=== PATIENT | female | born 1985 | race American Indian/Alaskan Native ===

== ENCOUNTER 2019-06-09 11:29 | Inpatient (IN) | payer BC ==
[2019-06-09 12:10] LABS: Bacteria,Urine 4+ /HPF (Negative); Bilirubin,Urine NEG (Negative); Blood,Urine NEG (Negative); Color,Urine Yellow (Yellow); Protein,Urine <15 mg/dL mg/dL (Negative); Urobilinogen,Urine < 2.0 mg/dL (<2.0)
[2019-06-09 12:51] LABS: Hematocrit 37.5 % (30.3-42.9); Hemoglobin 12.6 gm/dl (10.1-14.3); Mean Corpuscular HGB Conc 34 % (30-34); Mean Corpuscular Volume 96 fl (79-97); Platelet Count 202 K/mm3 (140-440); Red Blood Count 3.92 M/mm3 (3.65-5.03); Red Cell Distribution Width 16.7 % (13.2-15.2)
--- NOTE | 2019-06-09 12:55 | History and Physical Report ---
History of Present Illness Date of examination: 06/09/19 Date of admission: 06/09/2019 Chief complaint: sent from office for elevated BP History of present illness: Menstrual History Regularity: regular Menses every: 28 days Duration: 5 LMP: 09/09/2018 LMP reliability: definite LMP character: normal test type: urine test Date: 12/16/2018 BC at conception: none Planned ? yes EDC Calculations LMP: 06/16/2019 EDC Confirmation: 06/16/2019 Gestational Age: 14 weeks Past History : 3 Term Births: 2 Premature Births: 0 Living Children: 2 Para: 2 Mult. Births: 0 Prev : 0 Aborta: 0 Elect. Ab: 0 Spont. 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 of genital herpes: yes Partner hx. of genital herpes: no Rash, Viral, or Febrile illness since last LMP? no Varicella/Chicken Pox Status: Previous Disease Genetic History Congenital Heart Defect: Mom: no Dad: no Ladi Disease: Mom: no Dad: no Thalassemia Mom: no Dad: no Neural Tube Defect Mom: no Dad: no Down's Syndrome Mom: no Dad: no Maurice-Sachs Mom: no Dad: no Sickle Cell Disease/Trait Mom: no Dad: no Hemophilia Mom: no Dad: no Muscular Dystrophy Mom: no Dad: no Cystic Fibrosis Mom: no Dad: no Vivian Chorea Mom: no Dad: no Mental Retardation Mom: no Dad: no Fragile X Mom: no Dad: no Other Genetic/Chromosomal Disorder Mom: no Dad: no Child w/other defect Mom: no Dad: no Enviromental Exposures Xray Exposure: no Medication, drug, or alcohol use since LMP: no Chemical/Other Exposure: no Exposure to Cat Liter: no Hx of Parvovirus (Fifth Disease): no Occupational Exposure to Children: none Active Medications (reviewed today): SULFAMETHOXAZOLE-TRIMETHOPRIM 800-160 MG ORAL TABLET (SULFAMETHOXAZOLE- TRIMETHOPRIM) IBUPROFEN 800 MG ORAL TABLET (IBUPROFEN) Current Allergies (reviewed today): No known allergies Past History Past Medical History: other (see H&P) Past Surgical History: other (see H&P) [employer]PER[employer] History: other (see H&P) Family/Genetic History: other (see H&P) Social history: other (see H&P) - Obstetrical History Expected Date of Delivery: 06/16/19 Actual Gestation: 39 Week(s) 1 Day(s) : 3 Para: 2 Hx # Term Pregnancies: 2 Number of Living Children: 2 Medications and Allergies Allergies Allergy/AdvReac Type Severity Reaction Status Date / Time No Known Allergies Allergy Verified 06/09/19 11:32 Home Medications Medication Instructions Recorded Confirmed Last Taken Type Vit-Fe Fumar-FA [ 1 tab PO QDAY 06/09/19 06/09/19 Unknown History Vitamin] Review of Systems All systems: negative - Vital Signs Vital signs: Vital Signs Pulse Pulse Ox 61 100 06/09/19 12:05 06/09/19 12:05 Temp Pulse Resp BP Pulse Ox 75 146/84 99 06/09/19 12:40 06/09/19 12:36 06/09/19 12:40 - Physical Exam Breasts: Cardiovascular: Regular rate, Normal S1, Normal S2 Lungs: Positive: Clear to auscultation, Normal air movement Abdomen: Positive: normal appearance, soft, normal bowel sounds. Negative: distention, tenderness Genitourinary (Female): Positive: normal external genitalia, normal perenium Vulva: both: normal Vagina: Positive: normal moisture. Negative: discharge Cervix: Negative: lesion, discharge Uterus: Positive: normal size, normal contour Adnexa: both: normal Anus/Rectum: Positive: normal perianal skin, heme negative. Negative: rectal mass, hemorrhoids Extremities: Positive: normal Deep Tendon Reflex Grade: Normal +2 - Obstetrical FHR: auscultation normal Cervical Dilatation: 1.5 Cervical Effacement Percentage: 50 station: -3 Uterine Contraction Pattern: Irregular Uterine Contraction Intensity: Mild Results Result Diagrams: 06/09/19 11:58 06/09/19 11:58 Abnormal lab results 06/09/19 Range/Units 11:58 RDW 16.7 H (13.2-15.2) % All other labs normal. Assessment and Plan Patient sent from office for elevated BPs for PIH labs and serial BPs. Elevated BPs continued in triage, consults with Dr. Tenorio- tha to begin induction. Routine admission orders placed in EMR, will plan to place cervidil after patient eats lunch. UA results reviewed, blood work still pending. Will continue to monitor BPs. DWP POC, questions encouraged and answered. Pt agrees to proceed. RN aware.
[2019-06-09 13:05] LABS: Alanine Aminotransferase 15 units/L (7-56); Uric Acid 3.4 mg/dL (3.5-7.6)
[2019-06-09] MEDS ORDERED: AMPICILLIN/NS 2 GM/100 ML 2 GM/100 ML BAG IV ONE (13:32)
[2019-06-09] MEDS ORDERED: MINERAL OIL PO PRN (13:32)
[2019-06-09] MEDS ORDERED: XYLOCAINE 2% INFILTRATI ONE (13:32)
[2019-06-09] MEDS ORDERED: ZOFRAN IV PRN (13:32)
[2019-06-09] MEDS ORDERED: BRETHINE IVP PRN (13:32)
[2019-06-09] MEDS ORDERED: CERVIDIL VG ONE (13:32)
[2019-06-09] MEDS ORDERED: PITOCin/NS 20 UNIT/1000ML DRIP 20 UNITS/1,000 ML BAG IV SCH (14:00)
[2019-06-09] MEDS ORDERED: MAGNESIUM SULFATE 4GM/100ML 4 GM/100 ML BAG IV ONE (14:35)
--- NOTE | 2019-06-09 14:37 | Event Note ---
Date: 06/09/19 Pt blood pressures remain elevated with some in the severe range. Will start magnesium at this time and con't to monitor. Pt to get cervidil when admisssion completed.
[2019-06-09] MEDS ORDERED: MAGNESIUM SULFATE 40GM/1000ML 40 GM/1,000 ML BAG IV SCH (15:00)
[2019-06-09] MEDS: LACTATED RINGERS 1,000 ML IV SCH (16:23)
[2019-06-09] MEDS: AMPICILLIN/NS 1 GM/50 ML 1 GM/50 ML BAG IV SCH (19:30)
[2019-06-10] MEDS ORDERED: APRESOLINE IV ONE (04:06)
--- NOTE | 2019-06-10 04:23 | Event Note ---
Date: 06/10/19 Cervidil removed as scheduled. SVE 360/-3, vertex, IBOW. Cat 1 tracing, ctx irregular, mild. One time dose of IV hydralazine ordered for elevated BP. Pt denies any SERNA, visual disturbances, RUQ or epigastric pain, LOF,, VB, SOB, chest pain, difficulty breathing, or any other complaints. Will plan to start pitocin at 0500. RN aware. Will continue to monitor BPs
[2019-06-10] MEDS ORDERED: PITOCin/NS 30 UNIT/500ML 30 UNITS/500 ML BAG IV SCH (05:00)
[2019-06-10] MEDS: AMPICILLIN/NS 1 GM/50 ML 1 GM/50 ML BAG IV SCH (05:00)
[2019-06-10] MEDS: LACTATED RINGERS 1,000 ML IV SCH (05:54)
--- NOTE | 2019-06-10 05:57 | Event Note ---
Date: 06/10/19 (called to room to assess poss ROM) Copious amt of clear fluid noted on exam
--- NOTE | 2019-06-10 07:04 | Anesthesia Consultation ---
Anesthesia Consult and Med Hx Date of service: 06/10/19 - Airway Anesthetic Teeth Evaluation: Good ROM Head & Neck: Adequate Mental/Hyoid Distance: Adequate Mallampati Class: Class II Intubation Access Assessment: Probably Good - Pulmonary Exam CTA: Yes - Cardiac Exam Cardiac Exam: RRR - Pre-Operative Health Status ASA Pre-Surgery Classification: ASA3 Proposed Anesthetic Plan: Epidural - Pulmonary Hx Smoking: No Hx Asthma: No Hx Respiratory Symptoms: No SOB: No COPD: No Home Oxygen Therapy: No Hx Pneumonia: No Hx Sleep Apnea: No - Cardiovascular System Hx Hypertension: Yes (PIH) Hx Coronary Artery Disease: No Hx Heart Attack/AMI: No Hx Angina: No Hx Percutaneous Transluminal Coronary Angioplasty (PTCA): No Hx Cardia Arrhythmia: No Hx Pacemaker: No Hx Internal Defibrillator: No Hx Valvular Heart Disease: No Hx Heart Murmur: No Hx Peripheral Vascular Disease: No - Central Nervous System Hx Neuromuscular Disorder: No Hx Seizures: No CVA: No Hx Back Pain: No Hx Psychiatric Problems: No - Gastrointestinal Hx Ulcer: No Hx Gastroesophageal Reflux Disease: No - Endocrine Hx Renal Disease: No Hx End Stage Renal Disease: No Hx Cirrhosis: No Hx Liver Disease: No Hx Insulin Dependent Diabetes: No Hx Non-Insulin Dependent Diabetes: No Hx Thyroid Disease: No Hx Hypothyroidism: No Hx Hyperthyroidism: No - Hematic Hx Anemia: No Hx Sickle Cell Disease: No - Other Systems Hx Alcohol Use: No Hx Substance Use: No Hx Cancer: No Hx Obesity: Yes (BMI 34)
[2019-06-10] MEDS ORDERED: NARCAN 2 MG/2 ML IV PRN (07:30)
[2019-06-10] MEDS ORDERED: fentaNYL-BUPIV 2 MCG/ML-0.125% 200 MCG/100 ML BAG EPIDURAL SCH (08:00)
[2019-06-10] MEDS ORDERED: TUCKS PAD TP PRN (10:49)
[2019-06-10] MEDS ORDERED: BENADRYL PO PRN (10:49)
[2019-06-10] MEDS ORDERED: MILK OF MAGNESIA PO PRN (10:49)
[2019-06-10] MEDS ORDERED: TYLENOL PO PRN (10:49)
[2019-06-10] MEDS ORDERED: PHENERGAN PO PRN (10:49)
[2019-06-10] MEDS ORDERED: DULCOLAX PR PRN (10:49)
[2019-06-10] MEDS ORDERED: LANSINOH TP PRN (10:49)
[2019-06-10] MEDS ORDERED: MAGNESIUM SULFATE 40GM/1000ML 40 GM/1,000 ML BAG IV SCH (10:59)
[2019-06-10] MEDS ORDERED: SODIUM CHLORIDE FLUSH SYRINGE 10 ML IV NR (11:00)
--- NOTE | 2019-06-10 11:05 | Procedure Note ---
OB Delivery Note - Delivery Date of Delivery: 06/10/19 Chemical Etching Processor: FERNANDO KAY Estimated blood loss: 300cc - Vaginal Delivery presentation: vertex Delivery position: OA Intrapartum events: preeclampsia Delivery induction: cervidil Delivery augmentation: pitocin Delivery monitor: external FHT, external uterine Route of delivery: Delivery placenta: spontaneous Delivery cord: 3 umbilical vessels Episiotomy: none Delivery laceration: none Anesthesia: epidural Delivery comments: Called urgently to LDR for delivery Pt made rapid progress to complete after epidural live born male over intact perineum. Baby to mom's abdomen skin to skin. Baby floppy Cord clamped and cut Baby to warmenr. Responded very well to drying and stimulation. Cord blood obtained. Placenta and membrane del complete and intact, 3 vessel cord. Pit IVFs 8/9, EBL 300, Wgt 6-8. Mom and baby remain LDR stable. Mom will remain APU X 24 hours on MGSO4 due to PreE. Pt aware of POC and agrees. - A at 1 minute: 8 at 5 minutes: 9 Infant Gender: Male (wgt 6-8)
--- NOTE | 2019-06-10 13:40 | Event Note ---
Date: 06/10/19 (pt resting No c/o voiced) Pt remains in L&D for 24hrs MGSO4 BP 160-150/100-90 Consulted with . Will start Labetalol 200mg po BID now
[2019-06-10] MEDS: IBUPROFEN PO SCH ×2 (13:59→20:13)
[2019-06-10] MEDS: NORMODYNE PO SCH ×2 (14:00→22:27)
[2019-06-11] MEDS: IBUPROFEN PO SCH ×2 (02:00→18:11)
[2019-06-11 02:23] LABS: Hematocrit 32.3 % (30.3-42.9)
[2019-06-11] MEDS ORDERED: M-M-R II VACCINE SUB-Q ONE (06:00)
[2019-06-11] MEDS ORDERED: BOOSTRIX IM ONE (06:00)
[2019-06-11] MEDS ORDERED: CYTOTEC ONE (08:27)
[2019-06-11] MEDS ORDERED: CYTOTEC PR ONE (08:30)
[2019-06-11] MEDS ORDERED: MORPHINE ONE (08:31)
[2019-06-11] MEDS ORDERED: LOMOTIL PO PRN ×2 (08:37→09:00)
[2019-06-11] MEDS ORDERED: MORPHINE IV ONE (08:38)
[2019-06-11] MEDS ORDERED: HEMABATE IM ONE (09:00)
--- NOTE | 2019-06-11 09:13 | Progress Note ---
Assessment and Plan - Patient Problems (1) bleeding Current Visit: Yes Status: Acute (2) Single live Current Visit: Yes Status: Acute (3) Spontaneous vaginal delivery Current Visit: Yes Status: Acute Subjective - Subjective Date of service: 06/11/19 Interval history: PPD#1 , preeclampsia on MgSO4 has had intermittent vaginal bleeding thru out night Patient reports: voiding normally Objective - Vital Signs Latest vital signs: Vital Signs Temp Pulse Resp BP BP Pulse Ox 06/11/19 09:10 82 98 06/11/19 09:05 89 99 06/11/19 09:00 82 98 06/11/19 08:55 88 99 06/11/19 08:50 89 161/96 99 06/11/19 08:45 90 99 06/11/19 08:40 88 99 06/11/19 08:35 94 H 100 06/11/19 08:30 84 99 06/11/19 08:25 92 H 100 06/11/19 08:20 70 99 06/11/19 08:15 86 99 06/11/19 08:10 66 98 06/11/19 08:05 68 99 06/11/19 08:00 98.2 F 75 99 06/11/19 07:55 76 100 06/11/19 07:50 72 99 06/11/19 07:49 74 130/86 06/11/19 07:45 84 100 06/11/19 07:40 73 98 06/11/19 07:35 79 99 06/11/19 07:30 70 99 06/11/19 07:25 75 99 06/11/19 07:20 74 99 06/11/19 07:15 76 100 06/11/19 07:10 79 99 06/11/19 07:05 80 99 06/11/19 07:00 79 99 06/11/19 06:55 77 99 06/11/19 06:50 83 98 06/11/19 06:49 78 138/91 06/11/19 06:45 81 98 06/11/19 06:40 78 98 06/11/19 06:35 85 98 06/11/19 06:30 82 98 06/11/19 06:25 80 99 06/11/19 06:20 89 98 06/11/19 06:15 81 98 06/11/19 06:10 77 99 06/11/19 06:05 74 98 07 06:00 79 99 07 05:55 78 99 06/11/19 05:50 71 99 06/11/19 05:49 71 136/83 07 05:45 80 98 07 05:40 83 98 06/11/19 05:35 66 99 07 05:30 84 99 06/11/19 05:25 73 98 06/11/19 05:20 76 98 06/11/19 05:15 78 98 06/11/19 05:10 75 98 06/11/19 05:05 79 98 06/11/19 05:00 83 98 06/11/19 04:55 82 98 06/11/19 04:50 79 98 06/11/19 04:49 82 129/81 06/11/19 04:45 90 98 06/11/19 04:40 81 98 06/11/19 04:35 76 98 06/11/19 04:30 72 98 06/11/19 04:25 88 98 06/11/19 04:20 75 98 06/11/19 04:15 79 98 06/11/19 04:10 78 98 06/11/19 04:05 77 98 06/11/19 04:00 75 98 06/11/19 03:55 73 98 06/11/19 03:50 78 98 06/11/19 03:49 73 124/73 06/11/19 03:45 79 98 06/11/19 03:40 75 98 06/11/19 03:35 75 98 06/11/19 03:30 82 98 06/11/19 03:25 83 98 06/11/19 03:20 76 98 06/11/19 03:15 75 98 06/11/19 03:10 73 98 06/11/19 03:05 73 98 06/11/19 03:01 98.4 F 81 16 129/74 06/11/19 03:00 74 98 07 02:55 75 129/74 98 06/11/19 02:50 72 99 07 02:49 67 138/74 06/11/19 02:45 74 98 07 02:40 75 98 06/11/19 02:35 77 98 06/11/19 02:30 80 98 06/11/19 02:25 74 98 06/11/19 02:20 76 98 06/11/19 02:15 71 98 06/11/19 02:10 87 99 06/11/19 02:05 77 98 06/11/19 02:00 78 98 06/11/19 01:55 78 98 06/11/19 01:50 79 98 06/11/19 01:49 75 130/74 06/11/19 01:45 78 99 06/11/19 01:40 80 98 06/11/19 01:35 73 99 06/11/19 01:30 93 H 99 06/11/19 01:25 90 99 06/11/19 01:20 93 H 98 06/11/19 01:15 92 H 99 06/11/19 01:10 92 H 98 06/11/19 01:05 92 H 98 06/11/19 01:00 76 99 06/11/19 00:55 78 98 06/11/19 00:50 75 127/76 99 06/11/19 00:45 72 98 06/11/19 00:40 70 99 06/11/19 00:35 66 99 06/11/19 00:30 75 99 06/11/19 00:25 74 100 06/11/19 00:20 71 100 06/11/19 00:15 72 99 06/11/19 00:10 69 99 06/11/19 00:05 72 99 06/11/19 00:00 78 99 06/10/19 23:55 70 99 19 23:50 94 H 99 19 23:49 70 140/85 19 23:45 62 99 06/10/19 23:40 65 99 06/10/19 23:35 64 99 06/10/19 23:30 65 99 18/19 23:25 78 98 06/10/19 23:20 71 99 19 23:15 81 98 06/10/19 23:10 82 99 06/10/19 23:05 93 H 100 19 23:00 78 99 1819 22:56 78 76 L 06/10/19 22:55 78 99 19 22:50 98.3 F 70 18 136/84 136/84 06/10/19 21:52 77 152/93 06/10/19 20:50 89 141/94 06/10/19 19:55 98.4 F 78 18 155/96 06/10/19 19:43 78 155/96 06/10/19 19:17 99 H 138/94 06/10/19 18:47 76 136/78 06/10/19 18:17 74 141/92 06/10/19 17:47 74 123/74 06/10/19 17:17 75 125/75 06/10/19 16:47 75 122/69 06/10/19 16:17 82 129/77 06/10/19 16:00 99.3 F 06/10/19 15:47 88 145/79 06/10/19 15:17 87 133/76 06/10/19 14:59 93 H 150/80 06/10/19 14:00 90 159/96 06/10/19 13:47 90 159/96 06/10/19 13:32 95 H 161/99 06/10/19 13:17 109 H 157/99 06/10/19 13:02 87 153/97 06/10/19 12:50 87 160/102 06/10/19 12:34 86 157/95 06/10/19 10:17 99 H 131/81 06/10/19 10:04 103 H 100 06/10/19 10:02 100 H 131/76 06/10/19 09:59 100 H 100 19 09:54 109 H 100 06/10/19 09:49 103 H 100 06/10/19 09:47 95 H 130/76 06/10/19 09:44 106 H 100 1819 09:39 105 H 100 1819 09:34 104 H 100 06/10/19 09:32 98 H 130/79 18 09:29 101 H 100 18/19 09:24 105 H 100 18 09:19 109 H 133/84 100 18/19 09:14 102 H 100 Intake and Output 06/10/1906/11/06/11/19 22:59 06:59 14:59 Output Total 1600 800 Balance -1600 -800 Output: Urine 1600 800 Indwelling Catheter 1600 800 Other: Total, Output Amount 400 200 - Exam Breasts: Present: deferred Abdomen: Present: soft. Absent: distention Vulva: both: normal Uterus: Present: fundal height at umbilicus Extremities: Present: normal Comments: Bedside US revealed no obvious evidence of retained placental tissue however possible clot ZELDA and cervix. Multiple clots expressed from vagina, cervix and and lower uterine segment(~200mL). Hemabate 250mcg IM and Cytotec 800mcg CT given. Will observe closely for further bleeding. - Labs Labs: Abnormal lab results 06/10/19 06/10/19 06/11/19 Range/Units 12:37 18:00 02:13 Magnesium 4.80 H 5.30 H 5.40 H (1.7-2.3) mg/dL
[2019-06-11] MEDS ORDERED: CYTOTEC PR SCH (09:30)
[2019-06-11] MEDS ORDERED: ceFAZolin 2 GM in NACL 0.9% 100 ML IV ONE (09:45)
[2019-06-11 09:51] LABS: Hematocrit 34.4 % (30.3-42.9); Hemoglobin 11.6 gm/dl (10.1-14.3)
[2019-06-11] MEDS ORDERED: ANCEF/STERILE WATER 2 GM/20 ML 2 GM/20 ML SYRINGE IV ONE (10:00)
[2019-06-11] MEDS: NORMODYNE PO SCH ×2 (10:30→21:55)
[2019-06-12] MEDS: IBUPROFEN PO SCH ×4 (02:23→12:18)
[2019-06-12] MEDS: NORMODYNE PO SCH (09:06)
[2019-06-12 13:35] VITALS: BP 126/70
--- NOTE | 2019-06-12 14:23 | Discharge Summary ---
Providers - Providers Date of Admission: 06/09/19 15:41 Date of discharge: 06/12/19 Attending physician: AMPARO HALL Primary care physician: AMPARO HALL Hospitalization Reason for admission: labor Condition: Good Pertinent studies: post delivery H&H 11.6/34.4, patient reports asymptomatic with decrease in values post delivery Procedures: Hospital course: uncomplicated delivery and course Disposition: DC-01 TO HOME OR SELFCARE Core Measure Documentation - Palliative Care Palliative Care/ Comfort Measures: Not Applicable - Core Measures Any of the following diagnoses?: none Exam - Constitutional Vitals: Temp Pulse Resp BP Pulse Ox 97.8 F 84 20 126/70 99 06/12/19 13:34 06/12/19 13:34 06/12/19 13:34 06/12/19 13:34 06/12/19 00:56 General appearance: Present: no acute distress, well-nourished - EENT Eyes: Present: PERRL ENT: hearing intact, clear oral mucosa - Neck Neck: Present: supple, normal ROM - Respiratory Respiratory effort: normal Respiratory: bilateral: CTA - Cardiovascular Rhythm: regular Heart Sounds: Present: S1 & S2. Absent: rub, click - Extremities Extremities: pulses symmetrical, No edema Peripheral Pulses: within normal limits - Abdominal General gastrointestinal: Present: soft, non-tender, non-distended, normal bowel sounds Female genitourinary: Present: normal - Integumentary Integumentary: Present: clear, warm, dry - Musculoskeletal Musculoskeletal: gait normal, strength equal bilaterally - Psychiatric Psychiatric: appropriate mood/affect, intact judgment & insight - Neurologic Neurologic: CNII-XII intact, moves all extremities - Additional findings Additional findings: Patient reports feeling well, denies any complaints or concerns. Fundus firm, ML, U/2. Vaginal bleeding is minimal. Patient denies any heavy bleeding or clots since transfer to [facility] unit. She reports pain is well controlled with motrin. DWP post delivery H&H and VS. She denies any dizziness or feeling faint with ambulation or position changes. Pt reports breast feeding is going well, she denies any breast complaints. DWP plans to d.c home today, pt will f/u in office in 1 week for BP check, continue labetalol 200mg PO BID upon discharge, RX on chart. DWP and PIH danger signs to reports to provider. Pt verbalizes understanding. Plan Activity: no restrictions Diet: low salt Follow up with: AMPARO HALL MD [Primary Care Provider] - 7 Days (Congratulations! Please call [phone] to schedule a blood pressure check appointment in 1 week. Schedule your son's circumcision appointment in 1 week. Bring EMLA cream prescription with you to his appointment and await further instructions for use. Call with any questions or concerns. ) Prescriptions: Lidocain2.5%/Prilocai2.5% [Emla] 5 gm TP ONCE #1 tube Labetalol [Labetalol 200mg TAB] 200 mg PO BID #60 tablet
== END 2019-06-12 15:40 | disposition home or self-care (01) | DRG 807 ==
LOC: TRG 11:29 → LD 15:41 → APU 06-10 15:16 → OB 06-11 11:46
PROVIDERS: ADMIT Obstetrics & Gynecology; ATTEND Obstetrics & Gynecology
PROC: 3E0P7VZ Introduction of Hormone into Female Reproductive, Via Natural or Artificial Opening (ICD-10-PCS; 2019-06-09)
PROC: 10E0XZZ Delivery of Products of Conception, External Approach (ICD-10-PCS; principal; 2019-06-10)
PROC: 3E0R3BZ Introduction of Anesthetic Agent into Spinal Canal, Percutaneous Approach (ICD-10-PCS; 2019-06-10)
PROC: 00HU33Z Insertion of Infusion Device into Spinal Canal, Percutaneous Approach (ICD-10-PCS; 2019-06-10)
PROC: 3E0234Z Introduction of Serum, Toxoid and Vaccine into Muscle, Percutaneous Approach (ICD-10-PCS; 2019-06-11)
DX: O14.94 Unspecified pre-eclampsia, complicating childbirth (principal); Z37.0 Single live birth; O99.214 Obesity complicating childbirth; Z3A.39 39 weeks gestation of pregnancy; Z23 Encounter for immunization; O72.1 Other immediate postpartum hemorrhage
CPT/HCPCS: 36415; 59025; 59200; 81001; 82565; 83615; 83735; 84450; 84460; 84550; 85014; 85018; 85027; 86592; 86762; 86850; 86900; 86901; 88307; G0378; J0290; J0360; J0690; J2270; J2590; J3475; J7120